=== PATIENT | male | born 1950 | race Caucasian/White ===

== ENCOUNTER → 2023-06-10 | Outpatient (CLI) | payer MEDICARE ==
[2023-06-10 15:11] LABS: African American GFR (CKD) 63 (>60 ml/min/1.73 sqM); Blood Urea Nitrogen 31 mg/dL (9-20); Non-African American GFR(CKD) 55 (>60 ml/min/1.73 sqM)
--- NOTE | 2023-06-12 08:44 | CT ---
EXAMINATION TYPE: CT urogram wo/w con DATE OF EXAM: 06/10/2023 COMPARISON: None HISTORY: Hematuria CT DLP: 4465.0 mGycm Automated exposure control for dose reduction was used. Contrast: None Technique: Axial images 5 mm thick sections. Reconstructed images. 3-D reconstructed images through t he renal collecting system. FINDINGS: Limited CT sections are obtained from the lung bases which are clear. Coronary artery calcification i s noted. CT ABDOMEN: Tiny hepatic cyst is within the liver. Liver and spleen otherwise appear unremarkable. Th e gallbladder is absent. Pancreas is slightly atrophic. Adrenal glands are normal. Vascular calcifica tions within the aorta. Inferior vena cava is normal. Portion of the appendix visualized is unremarka ble. Loops of bowel without contrast normal. Urinary bladder without contrast appears normal. There is a 2.2 cm cyst on the posterior left mid kidney. A peripelvic cyst may be in the superior cintia e left kidney. Large complex cyst on the inferior lateral left kidney measuring 6.8 cm. Appears to be some septations within the anterior portion. Cortical renal cysts in the right kidney inferior pole measuring 2.0 cm. On precontrast images there is a 0.4 cm calcification in the inferior pole left [place]. A nonobstructing 0.6 cm calcification inferior pole right kidney. There is symmetrical excretion of contrast through the kidneys. Note is made of a punctate nonobstruc ting renal stone in the lateral right kidney on the coronal plane images. Renal calyces infundibula a nd renal pelves appear normal and 3-D reconstructed images. Ureters follow a normal caliber course an d contour to the urinary bladder. Distal left ureter within the pelvis is not identified. IMPRESSION: 1. NONOBSTRUCTING BILATERAL RENAL STONES. 2. COMPLEX APPEARING CYST INFERIOR LEFT KIDNEY. ADDITIONAL WORKUP CAN BE PERFORMED. 3. MORE SIMPLE APPEARING BILATERAL RENAL CYSTS.
== END | disposition home or self-care (01) ==
LOC: RADCTMAIN 14:10
PROVIDERS: ATTEND Urology
DX: N20.0 Calculus of kidney (principal); N28.1 Cyst of kidney, acquired; R31.0 Gross hematuria
CPT/HCPCS: 82565; 84520; 74178; 36415; 74400; Q9967

== ENCOUNTER → 2025-03-07 | Outpatient (CLI) | payer MEDICARE ==
--- NOTE | 2025-03-07 16:04 | US ---
EXAMINATION TYPE: US kidneys/renal and bladder DATE OF EXAM: 03/07/2025 COMPARISON: CT urogram 06/10/2023 CLINICAL INDICATION: Male, 74 years old with history of N28.1 CYST OF KIDNEY, ACQUIRED; Hx stones, cy sts TECHNIQUE: Grayscale imaging of the bilateral kidneys and urinary bladder: FINDINGS: EXAM MEASUREMENTS: Right Kidney: 14.9 x 7.2 x 6.9 cm Left Kidney: 11.8 x 6.1 x 7.1 cm Right Kidney: Enlarged. Hydronephrosis seen- internal echoes versus filling defect seen within the renal pelvis/proximal ur eter: 7.2 x 3.2 x 2.1 cm. *Multiple shadowing stones seen, largest is at the lower pole: 0.9 cm in greatest dimension. *A lateral renal cortical cyst measures 2.5 x 2.5 x 2.2 cm. Left Kidney: Complex area seen upper pole: 4.5 x 2.7 x 2.2 cm. *Complex area seen inferior: 6.8 x 6.1 x 3.1 cm. Multiple anechoic areas seen. Largest seen laterally and measures 2.2 cm in greatest dimension. Bladder: Partially distended bladder shows no gross abnormality. Bilateral Jets seen: No IMPRESSION: 1. Moderate right-sided hydronephrosis. There is either sludge versus urothelial lesion along the UPJ region that may be serving as the transition point. Correlate with urine cytology and further CT uro gram assessment. 2. A couple complex cysts in the left kidney measuring 6.8 cm and 4.5 cm. These can also be further a ssessed on CT urogram. Comparison can be made to the 2022 exam. [facility], Workstation: [id number], 03/07/2025 4:01 PM
== END | disposition home or self-care (01) ==
LOC: RADUSWWP 15:08
PROVIDERS: ATTEND Urology
DX: N28.1 Cyst of kidney, acquired (principal); N13.30 Unspecified hydronephrosis
CPT/HCPCS: 76770

== ENCOUNTER → 2025-06-16 | Outpatient (CLI) | payer MEDICARE ==
--- NOTE | 2025-06-17 03:02 | CT ---
EXAMINATION TYPE: CT abdomen pelvis wo con DATE OF EXAM: 06/16/2025 12:01 PM COMPARISON: 03/07/2025 CLINICAL INDICATION: Male, 75 years old with history of N13.30 hydronephrosis, Bilat flank pain. Hx o f stones. Hydronephrosis. TECHNIQUE: Axial images were obtained from above the diaphragm to the pubic rami in the axial plane a t 5 mm thick sections. Reconstructed images are reviewed on the computer in the coronal plane. CONTRAST: mL of . Study performed with Oral Contrast DLP: 1091 mGycm, Automated exposure control for dose reduction was used. FINDINGS: Limited CT sections are obtained the lung bases. The lung bases are clear. CT ABDOMEN: Liver: Normal Spleen: Normal Pancreas: Atrophic Adrenal glands: The adrenal glands are normal. Gallbladder: Surgically absent Kidneys: No masses are evident. No hydronephrosis is present. No cysts are present. There is a 0.7 cm calcification mid left kidney. There is a lobular density extending from the posterior lateral le ft kidney may be a complex cyst. This appears more cystic on the ultrasound. An underlying mass shoul d be 5.9 cm. Follow-up is recommended. Aorta: Vascular calcification is within the aorta. Inferior vena cava: Normal. CT PELVIS: Loops of bowel within the abdomen and pelvis are normal. There are loops of bowel which are incom pletely distended or lack oral contrast limiting their evaluation. Appendix: Normal as visualized. Urinary bladder: Normal. Genitourinary structures: Prostate is prominent. Osseous structures: No suspicious lytic or sclerotic lesions. IMPRESSION: 1. Lobular complex cyst versus low density mass along the lateral left kidney. Continued monitoring is recommended with ultrasound. 2. New Nonobstructing left renal stone [facility], Workstation: [email or web address], 06/17/2025 2:59 AM
== END | disposition home or self-care (01) ==
LOC: RADCTMAIN 11:42
PROVIDERS: ATTEND Urology
DX: N13.30 Unspecified hydronephrosis (principal); N20.0 Calculus of kidney
CPT/HCPCS: 74176